=== PATIENT | female | born 2000 | race Caucasian/White ===

== ENCOUNTER 2023-07-13 05:50 | Emergency (ER) | payer SELFPAY ==
[2023-07-13 05:51] VITALS: BP 137/88; PULSE 74; RESP 18; TEMP 36.6; O2SAT 99; BMI 23.8
--- NOTE | 2023-07-13 05:56 | ED.VIS.DENTA ---
HPI History of Present Illness Chief Complaint: Dental Informant: patient Onset/Context/Timing Onset: Days (2) Context: Gradual Onset Timing: Continuous Quality: Sharp Location: Right upper molars Worsened by: Chewing Relieved by: - (Nothing) Associated Symptoms Assocated Symptom - Dental: face swelling; Negative for fever, jaw swelling, cold sensitivity or hot sensitivity Narrative Narrative: Patient presents with dental pain that has been getting worse over the past 2 days. Patient states she woke up today and noted some swelling in the right side of her face. Patient denies any difficulty breathing or difficulty swallowing. Patient states her pain is sharp. Patient states the pain is worse with chewing. Patient denies any fevers or chills. Patient denies any nausea or vomiting. Patient denies any hot or cold sensitivity. Patient denies any swelling of her lower jaw. PFSH PFSH Medical History no medical history no medical history Home Medications penicillin V potassium 500 mg tablet 500 mg PO 4X/DAY #40 tabs 07/13/23 [Rx Last Taken Unknown] Allergy/AdvReac Type Severity Reaction Status Date / Time No Known Allergies Allergy Verified 07/13/23 05:51 Surgical History no surgical history no surgical history Social History Smoking Status: Former smoker ROS ROS ED Constitutional Constitutional ED: Denies chills or fever(s) Eyes Eyes: Denies blurry vision or change in vision ENT ENT ED: Denies rhinorrhea or sore throat Cardiovascular Cardiovascular: Denies chest pain or palpitations Respiratory/Chest Respiratory/Chest: Denies cough or dyspnea Gastrointestinal Gastrointestinal: Denies nausea or vomiting Genitourinary Genitourinary ED: Denies dysuria or hematuria Musculoskeletal Musculoskeletal: Denies back pain or neck pain Integumentary Denies abscess or rash Neurologic Neurologic: Denies headache(s) or weakness Allergic/Immunologic Allergic/Immunologic ED: Denies mouth swelling or urticaria EXAM Physical Exam Const Vital Signs: 07/13/23 05:51 Temperature 98 F Temperature Source Temporal Pulse Rate 74 Respiratory Rate 18 Blood Pressure 137/88 H Blood Pressure Mean 104 Pulse Ox 99 Positive well nourished and well developed General Appearance ED: well developed and NAD HEENT HEENT Narrative: There is gingival edema of the right upper molar area. There is no fluctuance. There is no discharge or drainage noted. Oropharynx is clear. Airway is patent. Neck is supple. Trachea is midline. There is no JVD or lymphadenopathy noted. There is no sublingual edema or erythema. There is no evidence of Saul's angina. Mouth ED: Yes oral and palatal mucosa normal Mouth: oral and palatal mucosa normal Teeth and Gingiva: caries and gingiva abnormal Positive for gingival edema Throat: posterior oropharynx normal Neck no lymphadenopathy, supple and no JVD General: Negative for anterior neck swelling, tenderness or submandibular swelling Resp normal respiratory effort and clear to auscultation bilaterally Cardio regular rate and regular rhythm Neuro oriented x3, CN's II-XII intact bilaterally, moves all extremities, no focal motor deficits and no sensory deficits noted Sensorium / Orientation: alert Motor Exam: strength 5/5 throughout Psych mental status grossly normal MDM MDM MDM Narrative Medical decision making narrative: Patient was advised that this is most likely a dental infection. Patient was given a dose of Pen-Vee K here. Patient was given a prescription for Pen-Vee K. Patient was instructed to use Tylenol or ibuprofen as needed for pain. Patient was instructed to follow-up with her dentist in 5 to 7 days. Patient understood and was agreeable with the plan. All questions were answered. Discharge Plan Triage Chief Complaint: Dental ED Provider: Teofilo Ireland Dx/Rx/DC Orders Clinical Impression: Infected dental caries, Elevated blood pressure reading without diagnosis of hypertension Instructions: ED Dental Pain Prescriptions: New penicillin V potassium 500 mg tablet 500 mg PO 4X/DAY Qty: 40 0RF Primary Care Provider: Care Physician,No Primary Referrals: NOT,DEFINED [Non-Staff] - Dentist,Your [STAFF PHYSICIAN] - 5-7 Days Disposition Disposition: Home, Self Care
[2023-07-13] MEDS: Penicillin Vk 250 MG Tablet 500 MG PO (06:15)
[2023-07-13 06:16] VITALS: BP 121/74; PULSE 76; RESP 18; O2SAT 99
== END 2023-07-13 06:16 | disposition home or self-care (01) ==
PROVIDERS: Emergency Provider Emergency Medicine; Visit Provider Emergency Medicine
DX: K02.9 Dental caries, unspecified (principal); R03.0 Elevated blood-pressure reading, without diagnosis of hypertension; Z87.891 Personal history of nicotine dependence
CPT/HCPCS: 99282

== ENCOUNTER 2023-11-30 16:26 | Emergency (ER) | payer BC, SELFPAY ==
[2023-11-30 16:27] VITALS: BP 147/123; PULSE 80; RESP 16; TEMP 36.8; O2SAT 98; BMI 23.0
--- NOTE | 2023-11-30 16:33 | EX.ED.DYSGE1 ---
HPI History of Present Illness Chief Complaint: General Illness Informant: patient Onset/Context/Timing Onset: Yesterday Context: Sudden Onset Timing: Continuous Quality: Pressure, burning Location: Chest Worsened by: Coughing Relieved by: Nothing Narrative Narrative: Patient presents with cough and chest pain that began yesterday. Patient states it began rather suddenly. Patient describes her pain as pressure and burning. Patient states it is worse with coughing. Patient states she is having a productive cough but does not know what the sputum looks like. Patient denies any shortness of breath. Patient denies any nausea, vomiting, or diarrhea. Patient denies any headaches or sinus pressure. Patient denies any fevers or chills. Patient states she took some of her boyfriend's antibiotics but did not feel any better after this. [facility] History no medical history no medical history Home Medications ?Medication ?Instructions ?Recorded ?Last Taken ?Type norethindrone 1 mg-ethinyl 1 tab PO DAILY 11/30/23 Unknown History estradiol 20 mcg (21)-iron 75 mg (7) tablet (07/01 (28)) Allergy/AdvReac Type Severity Reaction Status Date / Time No Known Allergies Allergy Verified 11/30/23 16:27 Surgical History no surgical history no surgical history Social History Smoking Status: Former smoker ROS ROS ED Constitutional Constitutional ED: Denies chills or fever(s) Eyes Eyes: Denies blurry vision or change in vision ENT ENT ED: Denies rhinorrhea or sore throat Cardiovascular Cardiovascular: Reports chest pain; Denies palpitations Respiratory/Chest Respiratory/Chest: Reports cough; Denies dyspnea Gastrointestinal Gastrointestinal: Denies nausea or vomiting Genitourinary Genitourinary ED: Denies dysuria or hematuria Musculoskeletal Musculoskeletal: Denies back pain or neck pain Integumentary Denies abscess or rash Neurologic Neurologic: Denies headache(s) or weakness Allergic/Immunologic Allergic/Immunologic ED: Denies mouth swelling or urticaria EXAM Physical Exam Const Vital Signs: 11/30/23 16:27 11/30/23 16:59 Temperature 98.3 F Temperature Source Temporal Pulse Rate 80 Respiratory Rate 16 Respiratory Effort Normal Respiratory Pattern Normal Blood Pressure 147/123 H Blood Pressure Mean 131 Pulse Ox 98 Oxygen Delivery Method Room Air Positive well nourished and well developed General Appearance ED: well developed and NAD HEENT Reports moist mucous membranes HEENT Narrative: Oropharynx is clear. Airway is patent. There are no exudates noted. There is no postnasal drainage noted. Neck no lymphadenopathy, supple and no JVD Resp normal respiratory effort and clear to auscultation bilaterally Cardio regular rate and regular rhythm GI non-tender and non-distended Palpation: soft Neuro oriented x3, CN's II-XII intact bilaterally and no sensory deficits noted Sensorium / Orientation: alert Motor Exam: strength 5/5 throughout Psych mental status grossly normal MDM MDM MDM Narrative Medical decision making narrative: Differential diagnosis includes pneumonia, viral bronchitis, and viral upper respiratory infection. Chest x-ray will be obtained to assess for pneumonia and pneumothorax. COVID-19, influenza, and RSV PCR will be obtained to assess for viral illness. Lab Data Attestation: I reviewed the patient's lab results. Lab results narrative: COVID-19 PCR was reviewed and was negative. Influenza PCR was reviewed and was negative for influenza A and influenza B. RSV PCR was reviewed and was negative. Radiography Diagnostic Testing: Clinical Impression(s) from Imaging Studies Chest X-Ray 11/30/23 16:55 IMPRESSION: No radiographic evidence of acute cardiopulmonary disease. Electronically Signed: Oscar Treviño DO at 17:14 EDT Reading Location ID and State: [facility] / [place] Tel [phone], Service support , PA and lateral chest x-ray was obtained. There are 2 views. On my independent interpretation, lung henson are clear. There is normal cardiac silhouette. Bony thorax is normal. There is no acute process noted. Radiologist also interpreted the x-ray and agrees. Treatment and Re-Evaluation :: Patient was advised of findings. Patient was advised that this is most likely a viral illness. Patient was instructed to use his [id number] cough medications and decongestants as needed. Patient was instructed to take Tylenol or ibuprofen as needed for any aches or fevers. Patient was instructed to follow-up with her primary care physician in 5 to 7 days for reevaluation. Patient understood and was agreeable with the plan. All questions were answered. Discharge Plan Triage Chief Complaint: General Illness ED Provider: Schwiger,Teofilo Dx/Rx/DC Orders Clinical Impression: Viral respiratory illness, Elevated blood pressure reading Instructions: ED URI, Viral, No Abx (Adult) Prescriptions: No Action norethindrone-e.estradiol-iron [07/01 (28)] 1 mg-20 mcg (21)/75 mg (7) tablet 1 tab PO DAILY Primary Care Provider: Care Physician,No Primary Referrals: Teofilo Grant MD [Med Staff - Voice Over Artist] - 5-7 Days Care Physician,No Primary [Primary Care Provider] - Print Language: Polish Disposition Disposition: Home, Self Care
--- NOTE | 2023-11-30 16:55 | RAD_ITS ---
INDICATION: Cough EXAMINATION/TECHNIQUE: X-RAY - XR Chest 2 Views COMPARISON: FINDINGS: LINES/DEVICES: None. LUNGS: No consolidation, edema or effusion. No pneumothorax. MEDIASTINUM AND CARDIOVASCULAR STRUCTURES: Cardiac silhouette not enlarged. Central airways and mediastinal contour are unremarkable. BONES AND SOFT TISSUES: Unremarkable. RAD/Chest PA and Lateral IMPRESSION: No radiographic evidence of acute cardiopulmonary disease. Electronically Signed: Oscar Treviño DO at 17:14 EDT ,
[2023-11-30 18:17] VITALS: BP 140/95; PULSE 85; RESP 17; TEMP 36.4; O2SAT 99
== END 2023-11-30 18:17 | disposition home or self-care (01) ==
PROVIDERS: Emergency Provider Emergency Medicine; Visit Provider Emergency Medicine
DX: J98.8 Other specified respiratory disorders (principal); R03.0 Elevated blood-pressure reading, without diagnosis of hypertension; Z87.891 Personal history of nicotine dependence
CPT/HCPCS: 71046; 87631; 99282

== ENCOUNTER 2025-03-25 18:04 | Inpatient (IN) | payer BC, SELFPAY ==
[2025-03-25] VITALS (54 sets, daily range): BP systolic 122–182; BP diastolic 62–103; PULSE 79–152; RESP 16–18; TEMP 37.2–37.8; O2SAT 78–100; BMI 32.1
[2025-03-25] MEDS: Lactated Ringers 1,000 ML 999 ML IV (18:34)
[2025-03-25 18:43] LABS: Hematocrit 42.2 % (37-47); Hemoglobin 14.1 g/dL (12.0-15.0); Immature Granulocytes Count 0.070 X10^3/uL (0.0-0.0); Mean Corp Hgb Conc 33.4 g/dL (32-36); Mean Corpuscular Volume 87.9 fL (81-99); Mean Platelet Vol. 11.5 fl (6.2-12.0); NRBC Flagged by Analyzer 0 % (0-5); Platelet Count 204 K/mm3 (150-450); RBC Distribution Width CV 12.9 % (11.6-14.6); RBC Distribution Width SD 41.4 fl (35.1-43.9); Red Blood Count 4.80 M/mm3 (4.2-5.4); White Blood Count 14.4 K/mm3 (4.4-11.0)
[2025-03-25] MEDS: fentaNYL-bupivacaine (epidural) 100 ML BAG EPIDURAL (19:00)
[2025-03-25] MEDS: Lactated Ringers 1,000 ML 50 ML IV (19:35)
[2025-03-25 20:13] LABS: Syphilis Antibodies Nonreactive (Nonreactive)
[2025-03-25] MEDS: Oxytocin 15 Units/NS 250ml 15 UNITS/250 ML IV.SOLN 334 UNITS IV (21:14)
[2025-03-25] MEDS: Oxytocin 15 Units/NS 250ml 15 UNITS/250 ML IV.SOLN 83 UNITS IV (21:58)
[2025-03-26] VITALS (8 sets, daily range): BP systolic 130–146; BP diastolic 77–92; PULSE 78–100; RESP 16; TEMP 36.3–37.4; O2SAT 97–99
[2025-03-27] VITALS (11 sets, daily range): BP systolic 132–170; BP diastolic 74–94; PULSE 71–118; RESP 16–17; TEMP 36.7–37.3; O2SAT 99
[2025-03-27] MEDS: Senna/Docusate Sodium 1 Tablet PO (08:49)
[2025-03-27] MEDS: NIFEdipine 30 MG Tablet PO (09:43)
== END 2025-03-27 16:05 | disposition home or self-care (01) | DRG 807 ==
LOC: WPOUT 18:16 → WP 18:16
PROVIDERS: Admitting Provider Obstetrics & Gynecology; Visit Provider Obstetrics & Gynecology
DX: O48.0 Post-term pregnancy (principal); Z37.0 Single live birth; O13.5 Gestational [pregnancy-induced] hypertension without significant proteinuria, complicating the puerperium; O69.81X0 Labor and delivery complicated by cord around neck, without compression, not applicable or unspecified; O76 Abnormality in fetal heart rate and rhythm complicating labor and delivery; O70.0 First degree perineal laceration during delivery; Z3A.40 40 weeks gestation of pregnancy; Z87.891 Personal history of nicotine dependence
CPT/HCPCS: 59025; 59050; 85025; 86780; 86850; 86900; 86901; 99221; G0378